=== PATIENT | female | born 1970 | race Asian ===

== ENCOUNTER 2018-08-31 20:30 | Emergency (ER) | payer OTHER ==
--- NOTE | 2018-08-31 20:35 | PDOC ---
Rapid Medical Evaluation Chief Complaint: Chest Pain Time Seen by Provider: 08/31/18 20:33 Medical Evaluation: 08/31/18 20:34 I did a brief in person evaluation on this patient. CC: CP HPI: Pt is a 47 YO female who complains of CP worse with inspiration. Pt had a bunionectomy 3 weeks ago. Pt is on BC, however no hx of PE or CV hx. PE: Skin: Clear Lungs: Clear Heart:RRR Abd: soft, non tender MS: Moves all extremities without difficulty Neuro: alert Psych: appropriate affect. I have ordered: CV protocol with D dimer Pt will proceed to main ED for further evaluation. Discharge Disposition - Diagnosis Chest pain Qualifiers: Chest pain type: chest pain on breathing Qualified Code(s): R07.1 - Chest pain on breathing; R07.81 - Pleurodynia - Referrals - Patient Instructions - Post Discharge Activity
[2018-08-31 20:38] VITALS: BP 157/80; PULSE 87; TEMP 98.1; BMI 19.7
--- NOTE | 2018-09-01 01:08 | PDOC ---
History of Present Illness - General Chief Complaint: Chest Pain Stated Complaint: CHEST PAIN Time Seen by Provider: 08/31/18 20:33 Past History - Past Medical History Allergies/Adverse Reactions: Allergies Allergy/AdvReac Type Severity Reaction Status Date / Time No Known Allergies Allergy Verified 08/31/18 20:38 COPD: No - Suicide/Smoking/Psychosocial Hx Smoking History: Never smoked Have you smoked in the past 12 months: No Information on smoking cessation initiated: No Hx Alcohol Use: No Drug/Substance Use Hx: No *Physical Exam - Vital Signs Last Vital Signs Temp Pulse Resp BP Pulse Ox 98.1 F 87 21 H 157/80 100 08/31/18 20:35 08/31/18 20:35 08/31/18 20:35 08/31/18 20:35 08/31/18 20:35 *DC/Admit/Observation/Transfer Diagnosis at time of Disposition: Chest pain Qualifiers: Chest pain type: chest pain on breathing Qualified Code(s): R07.1 - Chest pain on breathing - Referrals Referrals: Clare De La Cruz MD [Primary Care Provider] - - Patient Instructions - Post Discharge Activity
--- NOTE | 2018-09-01 10:24 | EKG ---
Test Reason : Blood Pressure : / mmHG Vent. Rate : 062 BPM Atrial Rate : 062 BPM P-R Int : 162 ms QRS Dur : 090 ms QT Int : 428 ms P-R-T Axes : 061 082 058 degrees QTc Int : 434 ms SINUS RHYTHM WITH MARKED SINUS ARRHYTHMIA WITH OCCASIONAL PREMATURE VENTRICULAR COMPLEXES OTHERWISE NORMAL ECG NO PREVIOUS ECGS AVAILABLE Confirmed by KRISTAL MEJIA MD ([id number]) on 09/01/2018 10:24:02 AM Referred By: Confirmed By:KRISTAL MEJIA MD
== END 2018-09-01 01:16 | disposition left against medical advice (07) ==
LOC: JER 20:30
DX: R07.9 Chest pain, unspecified (principal)
CPT/HCPCS: 93005; 93010; 99281-25